=== PATIENT | male | born 1990 | race African-American/Black ===

== ENCOUNTER 2023-08-24 20:45 | Emergency (ER) | payer SELFPAY ==
[~2023-08-24] VITALS: Ht 175.3 cm; Wt 78.0 kg
[2023-08-24 21:04] VITALS: O2SAT 99
[2023-08-24] MEDS ORDERED: CYCL5TAB MT (23:22)
[2023-08-24] MEDS ORDERED: CYCLOBENZAPRINE 10MG TABLET PO SCH (23:30)
[2023-08-24 23:37] VITALS: BP 145/90; PULSE 97; RESP 12; TEMP 98.3
== END 2023-08-24 23:35 | disposition home or self-care (01) ==
LOC: ER 20:45
DX: G47.09 Other insomnia (principal)
CPT/HCPCS: 99283